=== PATIENT | female | born 1950 | race Caucasian/White ===

== ENCOUNTER → 2017-04-16 | Outpatient (CLI) | payer MEDICARE, OTHER ==
[~2017-04-16] MED LIST: DILA2TAB4 PO; ENOX40P SQ; MISC-163; PANT20 PO; SUCR1S PO; WALKER ROLLING
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
== END ==
LOC: HRAD 11:17
PROVIDERS: ATTEND Psychiatry & Neurology Neurology
DX: R06.00 Dyspnea, unspecified (principal)
CPT/HCPCS: 71020

== ENCOUNTER 2017-08-05 00:27 | Emergency (ER) | payer MEDICARE, OTHER ==
[~2017-08-05] VITALS: Ht 157.5 cm; Wt 45.0 kg
[2017-08-05 00:31] VITALS: BP 114/59; PULSE 56; RESP 16; TEMP 97.8; O2SAT 100
[2017-08-05] MEDS ORDERED: IMIP10 PO (00:47)
[2017-08-05] MEDS ORDERED: ADDE10 PO (00:47)
[2017-08-05] MEDS ORDERED: PERC7.5T13 PO (00:47)
[2017-08-05] MEDS ORDERED: XANA1TAB2 PO (00:47)
[2017-08-05] MEDS ORDERED: MARI5CAP PO (00:49)
[2017-08-05] MEDS ORDERED: TETANUS/DIPHTHERIA TOXOID ADULT 0.5 ML VIAL IM ONE (01:00)
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
[2017-08-05 01:53] VITALS: BP 112/58
== END 2017-08-05 01:54 | disposition home or self-care (01) ==
LOC: PHED 00:27
DX: S50.11XA Contusion of right forearm, initial encounter (principal); S50.811A Abrasion of right forearm, initial encounter; W20.8XXA Other cause of strike by thrown, projected or falling object, initial encounter; Z23 Encounter for immunization
CPT/HCPCS: 73090; 90471; 90714